=== PATIENT | male | born 1980 | race Hispanic/Latino ===

== ENCOUNTER 2020-03-12 20:16 | Emergency (ER) | payer OTHER | END 2020-03-12 23:01 | disposition home or self-care (01) | LOC: EDH 20:16 | DX: U07.1 COVID-19 (principal); B34.9 Viral infection, unspecified; R05 Cough; R19.7 Diarrhea, unspecified; K21.9 Gastro-esophageal reflux disease without esophagitis; Z72.0 Tobacco use; Z88.2 Allergy status to sulfonamides | CPT/HCPCS: 87804 ×2; 87880; 99283; U0003 ==

== ENCOUNTER 2020-03-15 19:24 | Emergency (ER) | payer OTHER | END 2020-03-15 21:05 | disposition home or self-care (01) | LOC: EDH 19:24 | DX: U07.1 COVID-19 (principal); R05 Cough; R50.9 Fever, unspecified; R06.02 Shortness of breath; K21.9 Gastro-esophageal reflux disease without esophagitis; Z88.2 Allergy status to sulfonamides; Z72.0 Tobacco use | CPT/HCPCS: 71045; 87880 ==

== ENCOUNTER → 2020-03-27 | Outpatient (CLI) | payer OTHER | LOC: LAB 15:44 | DX: R06.02 Shortness of breath (principal); R06.89 Other abnormalities of breathing | CPT/HCPCS: 93005 ==